=== PATIENT | female | born 1985 | race African-American/Black ===

== ENCOUNTER 2019-12-05 14:23 | Inpatient (IN) | payer BC ==
[2019-12-05] MEDS ORDERED: Bupivacaine PF 0.5% 30 ML VIAL ONE (15:44)
[2019-12-05] MEDS ORDERED: Bupivacaine/Epinephrine 0.25% 30 ML VIAL ONE (15:44)
--- NOTE | 2019-12-05 16:23 | PDOC.LDHP ---
Labor and Delivery H&P Chief complaint: scheduled induction HPI: 34 yo G1 @ 38w3d by 9 week CRL who presents for IOL due to concern for FGR, EFW 11% (all but [place] were < 10%) Current gestational age (weeks): 38 Due date: 12/16/19 Dating criteria: first trimester ultrasound Grav: 1 Para: 0 Current complications: IUGR Abnormal US findings: No Past Medical History: Denies Current medications: pre- vitamins Previous surgical history: none Allergies/Adverse Reactions: Allergies Allergy/AdvReac Type Severity Reaction Status Date / Time Quinolones Allergy Intermediate Hives Verified 12/05/19 21:18 egg Allergy Mild Nausea Verified 12/05/19 21:19 house dust Allergy Mild Short of Verified 12/05/19 21:19 Breath ofloxacin Allergy Mild Hives Verified 12/05/19 21:18 Social history: none - Physical Exam Vital signs reviewed and normal: yes General: NAD Heart: RRR Lungs: nonlabored breathing Abdomen: gravid Extremeties: no edema FHT: category 1 (110s, mod callie, +accels, early decels) [place] contractions every: q2-3 min - Vaginal Exam cm dilated: 5 (cephalic; s/p SROM) Effacement: 100% Station: 1+ - OB Labs Blood type: O RH: positive Antibody Screen: negative HIV: negative RPR: negative HEPSAg: negative 1 hour GCT: negative GBS: negative Urine drug screen: negative Rubella: immune Additional Labs: NIPT and msAFP wnl - Assessment G1 @ 38w3d IUP IOL for FGR - Plan Plan: admit to L&D, cervical ripening (s/p cytotec and SROM), informed consent obtained, anesthesia consult for pain management
[2019-12-05] MEDS ORDERED: Carboprost 250 MCG/ML AMP IM PRN (20:13)
[2019-12-05] MEDS ORDERED: Ondansetron PF 4 MG/2 ML Vial IVP PRN (20:13)
[2019-12-05] MEDS ORDERED: HYDROcodone/Acetaminophen 5/325 mg Tablet PO PRN (20:13)
[2019-12-05] MEDS ORDERED: NS / Oxytocin 40 units/1000ml 1,000 ML IV PRN (20:13)
[2019-12-05] MEDS ORDERED: Butorphanol Tartrate 1 MG/ML VIAL SLOW IVP PRN (20:13)
[2019-12-05] MEDS ORDERED: Lidocaine 1% (PF) 30 ML VIAL SC PRN (20:13)
[2019-12-05] MEDS ORDERED: Methylergonovine 0.2 MG/ML VIAL IM PRN (20:13)
[2019-12-05] MEDS ORDERED: Promethazine HCl 25 MG/ML VIAL IM PRN (20:13)
[2019-12-05] MEDS ORDERED: Misoprostol 200 MCG TAB PR PRN (20:13)
[2019-12-05] MEDS ORDERED: Ibuprofen 800 MG TAB PO PRN (20:13)
[2019-12-05] MEDS ORDERED: hydrALAZINE 20 MG/ML VIAL SLOW IVP PRN (20:13)
[2019-12-05] MEDS ORDERED: Acetaminophen 500 MG TAB PO PRN (20:13)
[2019-12-05] MEDS: Lactated Ringer's 1,000 ML IV SCH (20:30)
[2019-12-05 20:53] LABS: Hemoglobin 10.8 g/dL (12.0-16.0); Mean Corpuscular HGB CONC 32.5 g/dL (32.0-36.0); Mean Corpuscular Hemoglobin 29.7 pg (27.0-31.0); Mean Corpuscular Volume 91.4 fL (78.0-98.0); Mean Platelet Volume 9.6 fL (7.4-10.4); Platelet Count 168 thou/uL (130-400); RBC Distribution Width 12.4 % (11.5-14.5); Red Blood Cell (RBC) Count 3.63 mill/uL (4.20-5.40); White Blood Cell (WBC) Count 7.4 thou/uL (4.8-10.8)
[2019-12-05 20:59] VITALS: BMI 19.7
[2019-12-05 21:28] LABS: Syphilis Antibody Nonreactive (Nonreactive); Syphilis Antibody Index 0.04 S/CO (<1.00 Non-Reactive)
[2019-12-05] MEDS: Misoprostol 100 MCG TAB VAG SCH (22:10)
[2019-12-06 01:08] LABS: Hep B Surf Ag Non-Reactive S/CO (NonReactive)
[2019-12-06] MEDS: Misoprostol 100 MCG TAB VAG SCH ×8 (03:34→21:29)
[2019-12-06] MEDS: Lactated Ringer's 1,000 ML IV SCH ×2 (04:15→07:20)
[2019-12-06] MEDS ORDERED: Fentanyl 4 mcg/Bup 0.1% Cadd 100 ML ONE (06:56)
--- NOTE | 2019-12-06 09:10 | PDOC.OPDEL ---
OB Operative/Delivery Note Delivery Dr/Surgeon: Sherin Woo DO Pre-Delivery Diagnosis: medically indicated induction Procedure/Post Delivery Dx: spontaneous vaginal delivery Weeks gestation: 38 Anesthesia: epidural - Findings A Sex: female - 1 min: 9 - 5 min: 9 - Additional Findings/Plan Placenta delivered: spontaneous Repaired Obstetrical Laceration: episiotomy (2nd degree midline made due to decelerations at 2nd stage and need for prompt delivery) Estimated blood loss: 150 cc Compilations/Other Findings: Clear amniotic fluid Normal appearing placenta in ARASH position with nuchal cord x 1 Post delivery plan: routine recovery
[2019-12-06] MEDS ORDERED: Methylergonovine 0.2 MG/ML VIAL IM PRN (10:48)
[2019-12-06] MEDS ORDERED: Milk Of Magnesia 30 ML UDCUP PO PRN (10:48)
[2019-12-06] MEDS ORDERED: Benzocaine-Menthol 82.5 ML CAN TOP PRN (10:48)
[2019-12-06] MEDS ORDERED: Misoprostol 200 MCG TAB VAG PRN (10:48)
[2019-12-06] MEDS ORDERED: diphenhydrAMINE 25 MG CAP PO PRN (10:48)
[2019-12-06] MEDS ORDERED: Preparation H Ointment 28 GM TUBE PR PRN (10:48)
[2019-12-06] MEDS ORDERED: Lanolin Ointment 7 GM TUBE TOP PRN (10:48)
[2019-12-06] MEDS ORDERED: hydrALAZINE 20 MG/ML VIAL SLOW IVP PRN (10:48)
[2019-12-06] MEDS ORDERED: Bisacodyl 10 MG SUPP PR PRN (10:48)
[2019-12-06] MEDS ORDERED: NS / Oxytocin 40 units/1000ml 1,000 ML IV SCH (10:48)
[2019-12-06] MEDS: NS w/ Oxytocin 10 units 500 ML IV SCH (11:37)
--- NOTE | 2019-12-06 13:26 | ULT ---
PELVIC ULTRASOUND: Date: 12/06/2019 HISTORY: Pelvic mass protruding along the abdominal wall. FINDINGS: Real-time imaging of the area of concern shows a hypoechoic mass which lies along the anterior wall o f the uterus. It measures 2.6 cm in size. The patient is approximately 2 hours post vaginal delivery by history. Neither right nor left ovary identified. The density in question does not have the typica l appearance of an ovary. It is directly beneath the abdominal wall. No definitive flow is seen assoc iated with this. IMPRESSION: Hypoechoic solid appearing mass along the anterior wall of the uterine fundus. This does not have a t ypical appearance of an ovary. It is also not entirely typical for a fibroid, but the possibility of a pedunculated fibroid would be one consideration. Since the patient is recently , it may b e helpful to repeat the scan an see if the mass in question does move in relation to the uterus. POS: MISTY
[2019-12-06] MEDS: Ibuprofen 800 MG TAB PO SCH ×2 (14:11→21:26)
[2019-12-06] MEDS: HYDROcodone/Acetaminophen 5/325 mg Tablet PO PRN ×2 (17:03→23:07)
[2019-12-06] MEDS: Ferrous Sulfate 325 MG TAB PO SCH (17:43)
[2019-12-06] MEDS: Docusate Calcium (SURFAK) 240 MG CAP PO SCH (21:28)
[2019-12-07 05:33] LABS: Hemoglobin 9.4 g/dL (12.0-16.0); Mean Corpuscular HGB CONC 31.7 g/dL (32.0-36.0); Mean Corpuscular Hemoglobin 29.3 pg (27.0-31.0); Mean Corpuscular Volume 92.5 fL (78.0-98.0); Mean Platelet Volume 8.8 fL (7.4-10.4); Platelet Count 129 thou/uL (130-400); RBC Distribution Width 12.4 % (11.5-14.5); White Blood Cell (WBC) Count 12.8 thou/uL (4.8-10.8)
[2019-12-07] MEDS: Ibuprofen 800 MG TAB PO SCH ×3 (05:53→21:38)
[2019-12-07] MEDS: NS w/ Oxytocin 10 units 500 ML IV SCH (06:11)
[2019-12-07] MEDS: Misoprostol 100 MCG TAB VAG SCH ×4 (06:54→19:25)
[2019-12-07] MEDS: Docusate Calcium (SURFAK) 240 MG CAP PO SCH ×2 (08:15→21:39)
[2019-12-07] MEDS: Prenatal Vitamin 1 TAB PO SCH (08:15)
[2019-12-07] MEDS: Ferrous Sulfate 325 MG TAB PO SCH ×2 (08:15→17:18)
--- NOTE | 2019-12-07 08:30 | PDOC.PP ---
Post Progress Note Post Day #: 1 Subjective: Pain moderate, improved with meds. Minimal bleeding. Breast and formula feeding. PO intake tolerated: yes Flatus: yes Ambulation: yes Vital Signs (12 hours) Temp Pulse Resp BP Pulse Ox 12/07/19 07:36 98.3 F 64 20 96/72 99 12/07/19 04:32 98.2 F 64 16 109/70 98 12/07/19 00:37 98.2 F 86 18 126/87 98 Weight Weight 126 lb - Physical Examination General: NAD Cardiovascular: RRR Respiratory: non-labored breathing Abdominal: no distention, appropriately TTP Fundus firm & at: below umbilicus Deviation from normal: approx 4 cm mass at fundus - nttp Extremities: negative homans (B) Neurological: no gross focal deficits Psychiatric: A&Ox3, normal affect Result Diagrams: 12/07/19 05:19 Additional Labs: Post Labs Blood Type O POSITIVE 12/05/19 21:15 Hep Bs Antigen Non-Reactive S/CO (NonReactive) 12/05/19 20:38 (1) Vaginal delivery Code(s): O80 - ENCOUNTER FOR FULL-TERM UNCOMPLICATED DELIVERY Status: Acute (2) Anemia Code(s): D64.9 - ANEMIA, UNSPECIFIED Status: Acute (3) Fibroid Code(s): D21.9 - BENIGN NEOPLASM OF CONNECTIVE AND OTHER SOFT TISSUE, UNSP Status: Acute - Assessment/Plan PPD1 VSSAF Continue PP care Small mass presumed to be pedunculated fibroid at fundus, nttp. Will repeat imaging at PP exam. Plan for d/c 1-2 days LC today
[2019-12-07] MEDS: HYDROcodone/Acetaminophen 5/325 mg Tablet PO PRN (19:57)
[2019-12-08] MEDS: NS w/ Oxytocin 10 units 500 ML IV SCH (05:35)
[2019-12-08] MEDS: Ibuprofen 800 MG TAB PO SCH ×2 (05:54→13:57)
[2019-12-08 06:03] VITALS: TEMP 97.9
--- NOTE | 2019-12-08 07:07 | PDOC.PP ---
Post Progress Note Post Day #: 2 Subjective: Doing well, no pain, no concerns. Ready for home. PO intake tolerated: yes Flatus: yes Ambulation: yes Vital Signs (12 hours) Temp Pulse Resp BP Pulse Ox 12/08/19 04:00 97.9 F 60 14 125/85 99 12/08/19 00:00 98.5 F 59 L 14 114/69 98 12/07/19 20:00 97.9 F 65 16 112/77 98 Weight Weight 57.153 kg - Physical Examination General: NAD Cardiovascular: RRR Respiratory: clear to auscultation bilaterally, non-labored breathing Abdominal: no distention Neurological: no gross focal deficits Psychiatric: A&Ox3, normal affect Result Diagrams: 12/07/19 05:19 Additional Labs: Post Labs Blood Type O POSITIVE 12/05/19 21:15 Hep Bs Antigen Non-Reactive S/CO (NonReactive) 12/05/19 20:38 - Assessment/Plan s/p , PPD2 -VSS -Continue PP care -Small mass presumed to be pedunculated fibroid at fundus, nttp. Will repeat imaging at PP exam. -d/c today -f/u with Dr. Woo
[2019-12-08 07:59] VITALS: BP 104/67
[2019-12-08] MEDS: Prenatal Vitamin 1 TAB PO SCH (09:09)
[2019-12-08] MEDS: Ferrous Sulfate 325 MG TAB PO SCH (09:10)
[2019-12-08] MEDS: Docusate Calcium (SURFAK) 240 MG CAP PO SCH (09:10)
[2019-12-08] MEDS: Misoprostol 100 MCG TAB VAG SCH ×3 (09:17→14:25)
== END 2019-12-08 16:40 | disposition home or self-care (01) | DRG 807 ==
LOC: L&D 18:41 → 3SE 12-06 11:36
PROVIDERS: ADMIT Obstetrics & Gynecology; ATTEND Obstetrics & Gynecology
PROC: 10E0XZZ Delivery of Products of Conception, External Approach (ICD-10-PCS; principal; 2019-12-05)
PROC: 0KQM0ZZ Repair Perineum Muscle, Open Approach (ICD-10-PCS; 2019-12-05)
PROC: 3E033VJ Introduction of Other Hormone into Peripheral Vein, Percutaneous Approach (ICD-10-PCS; 2019-12-05)
DX: O36.5930 Maternal care for other known or suspected poor fetal growth, third trimester, not applicable or unspecified (principal); Z37.0 Single live birth; Z3A.38 38 weeks gestation of pregnancy; O76 Abnormality in fetal heart rate and rhythm complicating labor and delivery; D25.9 Leiomyoma of uterus, unspecified; O34.13 Maternal care for benign tumor of corpus uteri, third trimester; O69.81X0 Labor and delivery complicated by cord around neck, without compression, not applicable or unspecified; O90.81 Anemia of the puerperium; D64.9 Anemia, unspecified; O70.1 Second degree perineal laceration during delivery
CPT/HCPCS: 36415; 51702; 76857; 85027; 86780; 86850; 86900; 86901; 87340; J0595; J2405; S0020

== ENCOUNTER 2019-12-13 12:42 | Day surgery (SDC) | payer BC ==
[2019-12-13] MEDS ORDERED: Doxycycline 100 MG CAP PO SCH (13:45)
[2019-12-13] MEDS ORDERED: Misoprostol 200 MCG TAB ONE (13:56)
[2019-12-13 14:22] LABS: #Eosinphils 0.1 thou/uL (0.0-0.7); #Lymphocytes 1.7 thou/uL (1.20-3.40); #Monocytes 0.4 thou/uL (0.11-0.59); #Neutrophils 5.2 thou/uL (1.40-6.50); %Eosinophils 1.2 % (0.0-10.0); %Lymphocytes 23.1 % (21.0-51.0); %Monocytes 5.6 % (0.0-10.0); Hemoglobin 9.2 g/dL (12.0-16.0); Mean Corpuscular HGB CONC 32.7 g/dL (32.0-36.0); Mean Corpuscular Hemoglobin 30.7 pg (27.0-31.0); Mean Corpuscular Volume 93.8 fL (78.0-98.0); Mean Platelet Volume 8.6 fL (7.4-10.4); Platelet Count 160 thou/uL (130-400); RBC Distribution Width 12.8 % (11.5-14.5); White Blood Cell (WBC) Count 7.4 thou/uL (4.8-10.8)
[2019-12-13] MEDS ORDERED: Midazolam HCl 2 mg/2 ml Vial ONE (14:24)
[2019-12-13] MEDS ORDERED: Methylergonovine 0.2 MG/ML VIAL ONE (14:53)
[2019-12-13] MEDS ORDERED: Oxytocin 10 UNITS/ML VIAL ONE (14:54)
[2019-12-13] MEDS ORDERED: PROPOFOL 200 MG/20 ML VIAL ONE (14:54)
[2019-12-13] MEDS ORDERED: Succinylcholine Chloride 20 MG/ML 10 ml SYRINGE FS ONE (14:54)
[2019-12-13] MEDS ORDERED: Ondansetron PF 4 MG/2 ML Vial ONE (14:54)
[2019-12-13] MEDS ORDERED: Lidocaine 1% PF 5 ML VIAL ONE (14:54)
[2019-12-13] MEDS ORDERED: Silver Nitrate Application 1 EACH ONE (15:30)
[2019-12-13] MEDS ORDERED: Ferric Subsulfate (ASTRINGYN) 8 ML VIAL ONE ×2 (15:30→15:33)
[2019-12-13] MEDS ORDERED: Fentanyl 100 MCG/2 ML VIAL ONE ×2 (16:03→16:35)
[2019-12-13] MEDS ORDERED: Meperidine HCl/PF 25 MG/ML VIAL ONE (16:09)
[2019-12-13 16:39] LABS: #Basophils 0.1 thou/uL (0.0-0.2); #Eosinphils 0.1 thou/uL (0.0-0.7); #Lymphocytes 3.3 thou/uL (1.20-3.40); #Monocytes 0.5 thou/uL (0.11-0.59); #Neutrophils 6.1 thou/uL (1.40-6.50); %Basophils 0.7 % (0.0-1.0); %Lymphocytes 32.3 % (21.0-51.0); %Monocytes 5.3 % (0.0-10.0); %Neutrophils 60.6 % (42.0-75.0); Hemoglobin 9.5 g/dL (12.0-16.0); Mean Corpuscular HGB CONC 32.3 g/dL (32.0-36.0); Mean Corpuscular Hemoglobin 30.6 pg (27.0-31.0); Mean Corpuscular Volume 94.8 fL (78.0-98.0); Mean Platelet Volume 8.8 fL (7.4-10.4); Platelet Count 185 thou/uL (130-400); Red Blood Cell (RBC) Count 3.11 mill/uL (4.20-5.40); White Blood Cell (WBC) Count 10.1 thou/uL (4.8-10.8)
[2019-12-13] MEDS ORDERED: HYDROcodone/Acetaminophen 5/325 mg Tablet ONE (18:54)
--- NOTE | 2019-12-14 03:22 | OP ---
DATE OF PROCEDURE: 12/13/2019 PREOPERATIVE DIAGNOSES: 1. One week status post spontaneous vaginal delivery. 2. Delayed hemorrhage. 3. Anemia. POSTOPERATIVE DIAGNOSES: 1. One week status post spontaneous vaginal delivery. 2. Delayed hemorrhage. 3. Anemia. PROCEDURE PERFORMED: Suction dilation and curettage. ANESTHESIA: General. ESTIMATED BLOOD LOSS: 400 mL. COMPLICATIONS: hemorrhage. INDICATIONS FOR PROCEDURE: The patient is a 34-year-old female, seven days status post an uncomplicated vaginal delivery. She presented to clinic with complaints of approximately 12 hours of acute increased bleeding. The patient underwent ultrasound, which demonstrated a thickened endometrial stripe of approximately 5 cm with concern for possible retained products of conception. The patient was counseled and suction dilation and curettage was recommended. DESCRIPTION OF PROCEDURE: The patient was brought to the operating room. She had been given doxycycline for surgical prophylaxis. She was placed in general anesthesia and placed in dorsal lithotomy position using Willem stirrups. She was prepped and draped in sterile fashion. An official time-out was performed. A single-sided speculum was placed in the anterior aspect of the cervix. The cervix was dilated using Ivan dilators. A 10 mm suction curettage was inserted into the cervical canal and this was activated with removal of some products of conception during this process. After the initial suction portion, the patient began to have very brisk vaginal bleeding coming from the uterine cavity. Additional passings for the dissection were performed, however, the bleeding continued to be heavy. There was resistance met during the suction curettage. Therefore, the risk for perforation was concerned. The patient was given Methergine 0.2 mg IM and Cytotec 800 mcg rectally and Pitocin 20 units bolus along with fundal massage at this point and this allowed for resolution of the bleeding. A sharp curettage was then performed in a circumferential fashion, which was noted to have a gritty texture. Again, fundal massages were performed while the medications are continuing to work. With these interventions, bleeding was drastically decreased to just minimal amount of bleeding. An intraoperative ultrasound was performed to confirm that the endometrial stripe has been thinner and it did not appear to have any products of conception. 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 The measurements of the endometrial stripe in the lateral aspects were 1.8 to 2 cm. There was no overt signs of any products of conception at this point and the bleeding had stopped. The tenaculum site did have bleeding with removal of the tenaculum that required a [id number] suture using 3-0 chromic. During the process of controlling the bleeding with fundal massage and bimanual massage, the patient's previous second-degree laceration that occurred during her vaginal delivery was then opened. This vaginal laceration was then repaired again using 3-0 chromic in a normal second-degree fashion without any complication. The patient was then evaluated for a period of time approximately 15 to 20 minutes, noting no additional heavy bleeding after the completion of the procedure. The patient was then placed back in supine position. She was extubated without difficulty. All counts were correct x2. She was transferred to the PACU in hemodynamically stable condition and underwent a repeat CBC, which showed hemoglobin of approximately 9.5 with stable vital signs and was discharged home approximately 2 to 3 hours postoperatively. Job ID: [id number]
== END 2019-12-13 19:33 | disposition home or self-care (01) ==
LOC: SDC 12:42
PROVIDERS: ATTEND Obstetrics & Gynecology
PROC: 10D17ZZ Extraction of Products of Conception, Retained, Via Natural or Artificial Opening (ICD-10-PCS; principal; 2019-12-13)
DX: O72.2 Delayed and secondary postpartum hemorrhage (principal); D64.9 Anemia, unspecified; Z88.1 Allergy status to other antibiotic agents; Z91.012 Allergy to eggs; Z91.09 Other allergy status, other than to drugs and biological substances
CPT/HCPCS: 36415; 85025; 86850; 86900; 86901; 88305; J2001; J2175; J2210; J2250; J2405; J2590; J2704; J3010

== ENCOUNTER 2020-01-10 14:49 | Outpatient (CLI) | payer BC ==
--- NOTE | 2020-01-10 15:20 | RAD ---
XR Pelvis AP STANDARD HISTORY: Other osteomyelitis. Bilateral hip pain FINDINGS: No fracture, dislocation or bony destruction is seen. The joint spaces are maintained. IMPRESSION: No bony abnormality.
== END 2020-01-10 14:50 | disposition home or self-care (01) ==
LOC: BICRAD 14:49
PROVIDERS: ATTEND Obstetrics & Gynecology
DX: M86.8X8 Other osteomyelitis, other site (principal)
CPT/HCPCS: 72170